=== PATIENT | male | born 1990 | race Caucasian/White ===

== ENCOUNTER → 2018-09-12 20:51 | Emergency (ER) | payer BC, OTHER ==
[~2018-09-12 20:51] MED LIST: oxyCODONE/Acetamin 5/325 MG* TAB PO ONE
--- NOTE | 2018-09-12 21:35 | ED ---
Lower Extremity - HPI Summary HPI Summary: 27 year old male presents with right knee injury today. He states he by accident struck a hammer into his knee over his right knee. He states not able to place weight on the area without extreme pain. He denies any numbness or tingling. He states that the knee has been popping or locking. He denies any other injury. works as a dry wall installations mechanic. Edema noted to the area but no bruising noted. - History of Current Complaint Chief Complaint: EDExtremityLower Stated Complaint: RT KNEE PAIN Time Seen by Provider: 09/12/18 21:06 Pain Intensity: 20 - Allergies/Home Medications Allergies/Adverse Reactions: Allergies Allergy/AdvReac Type Severity Reaction Status Date / Time MS Bee Venom [Bee Venom] Allergy Swelling Verified 08/09/14 18:46 PMH/Surg Hx/FS Hx/Imm Hx Endocrine/Hematology History: Denies: Hx Anticoagulant Therapy, Hx Diabetes, Hx Thyroid Disease Cardiovascular History: Denies: Hx Hypertension, Hx Pacemaker/ICD Respiratory History: Reports: Hx Asthma Denies: Hx Chronic Obstructive Pulmonary Disease (COPD) History: Denies: Hx Renal Disease Musculoskeletal History: Denies: Hx Scoliosis Neurological History: Denies: Hx Dementia, Hx Headaches, Hx Seizures, Other Neuro Impairments/ Disorders Psychiatric History: Denies: Hx Substance Abuse Infectious Disease History: No Infectious Disease History: Denies: Hx Hepatitis, Hx Human Immunodeficiency Virus (HIV), Traveled Outside the [place] in Last 30 Days - Family History Known Family History: Positive: Hypertension - Social History Alcohol Use: Rare Substance Use Type: Reports: Excessive Caffeine Smoking Status (MU): Heavy Every Day Tobacco Smoker Type: Cigarettes Amount Used/How Often: 1/2 pack day Review of Systems Negative: Fever Negative: Chest Pain Negative: Shortness Of Breath Positive: Myalgia - right knee pain All Other Systems Reviewed And Are Negative: Yes Physical Exam Triage Information Reviewed: Yes Vital Signs On Initial Exam: Initial Vitals Temp Pulse Resp BP Pulse Ox 97.9 F 79 18 128/65 96 09/12/18 20:53 09/12/18 20:53 09/12/18 20:53 09/12/18 20:53 09/12/18 20:53 Vital Signs Reviewed: Yes Appearance: Positive: Well-Appearing Skin: Positive: Warm, Dry Head/Face: Positive: Normal Head/Face Inspection Eyes: Positive: Normal, Conjunctiva Clear ENT: Positive: Pharynx normal Respiratory/Lung Sounds: Positive: Clear to Auscultation, Breath Sounds Present Cardiovascular: Positive: Normal, RRR Musculoskeletal: Positive: Limited @ - right knee, Other - contusion noted to medial aspect of right knee, good pulses, sensation grossly intact Neurological: Positive: Normal Psychiatric: Positive: Normal Diagnostics - Vital Signs Vital Signs Temp Pulse Resp BP Pulse Ox 09/12/18 20:53 97.9 F 79 18 128/65 96 - Laboratory Lab Statement: Any lab studies that have been ordered have been reviewed, and results considered in the medical decision making process. - Radiology knee Radiology Interpretation Completed By: ED Physician Summary of Radiographic Findings: no fx Lower Extremity Course/Dx - Course Course Of Treatment: 27 year old male presents with right knee injury today. He states he by accident struck a hammer into his knee over his right knee. He states not able to place weight on the area without extreme pain. He denies any numbness or tingling. He states that the knee has been popping or locking. He denies any other injury. works as a dry wall installations mechanic. Edema noted to the area but no bruising noted. On exam has edema noted to medial aspect of right knee. Neurovascular intact. X-ray read by me as normal. We'll give crutches and knee immobilizer. Told to follow-up with orthopedic. Patient understands agrees with plan. - Diagnoses Differential Diagnosis/HQI/PQRI: Positive: Fracture (Closed), Sprain, Strain Provider Diagnoses: Right knee injury Discharge - Sign-Out/Discharge Documenting (check all that apply): Patient Departure - Discharge Plan Condition: Good Disposition: HOME Patient Education Materials: Knee Pain (ED) Referrals: Gloria Portillo NP [Primary Care Provider] - Carlene Foster MD [Medical Doctor] - Additional Instructions: Use immobilizer Stay off knee as much as possible Ice, elevate, Ibuprofen or Tylenol every 6 hours for pain Follow up with ortho Return to ED if develop or any new or worsening symptoms - Billing Disposition and Condition Condition: GOOD Disposition: Home
[2018-09-12 22:06] VITALS: BP 120/74
== END | disposition home or self-care (01) ==
LOC: ED 20:51
DX: M25.561 Pain in right knee (principal); Z91.030 Bee allergy status; F17.210 Nicotine dependence, cigarettes, uncomplicated
CPT/HCPCS: 99282; A9270-GY